=== PATIENT | male | born 1995 | race Caucasian/White ===

== ENCOUNTER 2022-08-22 20:57 | Emergency (ER) | payer OTHER, SELFPAY ==
[2022-08-22 21:02] VITALS: BP 129/76; PULSE 78; RESP 18; TEMP 36.7; O2SAT 100; BMI 25.8
--- NOTE | 2022-08-22 21:12 | ED_ITS ---
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 He notes suggest have occasional diarrhea with bright red hemorrhoidal bleeding related to that but no black stools and no emesis otherwise. He reports no vomiting. No fevers cough or chills. Occasionally has palpitations when he stands up quickly. There is no significant family history for early heart disease he does have other in an uncle who had heart attacks in later life. He has multiple risk factors for gastritis and gastric ulcers including binge drinking, ibuprofen use, excessive anxiety and cortisol levels, excessive caffeine and energy drinks, inadequate sleep and insomnia. Related Data Previous Rx's Medication Instructions Recorded meloxicam 15 mg tablet 15 mg PO DAILY #30 tabs 08/22/22 omeprazole 40 mg capsule,delayed 40 mg PO DAILY #30 caps 08/22/22 release trazodone 50 mg tablet 25 - 100 mg PO BEDTIME PRN 08/22/22 insomnia #60 tabs Allergies Allergy/AdvReac Type Severity Reaction Status Date / Time clarithromycin [From Biaxin] Allergy Verified 08/22/22 21:02 Review of Systems Review of Systems Narrative: Pertinent positive and negative findings as per HPI Patient History Social History Smoking Status: Never smoker Smoking Status: Never smoker alcohol intake frequency: 3 or more drinks per day Alcohol type: hard liquor Substance Use Type: does not use Exam Initial Vital Signs Initial Vital Signs: Vital Signs Temperature 98.0 F 08/22/22 21:02 Pulse Rate 78 08/22/22 21:02 Respiratory Rate 18 08/22/22 21:02 Blood Pressure 129/76 08/22/22 21:02 Pulse Oximetry 100 08/22/22 21:02 Oxygen Delivery Method Room Air 08/22/22 21:02 General: Healthy appearing, in no acute distress. Able to give a complete and coherent history. Well-nourished well-developed HEENT: Moist mucous membranes, normal sclera with reactive pupils, Neck: No JVD, supple Respiratory: Lungs are clear to auscultation, no wheezing no rales no rhonchi. Full and symmetrical air movement Cardiac: Regular rate and rhythm no murmurs no bruits Abdomen: Soft, minor epigastrium/distal sternal tenderness with deep palpation. No rebound or guarding Good bowel tones, no flank pain Skin: Warm and dry, no rashes Neurologic: Grossly neurologically intact with no obvious asymmetries or abnormalities Extremities: No trauma, well perfused Psych: Cooperative, appropriate insight and affect Course Orders Ordered: ED Orders 08/22/22 21:12 EKG-12 Lead Stat 08/22/22 21:31 Complete Blood Count AUTO DIFF Stat Comprehensive Metabolic Panel Stat Lipase Stat Troponin & CK Cardiac Panel Stat 08/22/22 22:05 XR chest 1V Stat Discontinued Medications Pantoprazole Sodium (Pantoprazole 40 Mg Vial) 40 mg IV NOW ONE Stop: 08/22/22 21:13 Last Admin: 08/22/22 21:52 Dose: 40 mg Documented By: YASH Vital Signs Vital signs: Vital Signs - 8 hr 08/22/22 21:02 08/22/22 21:36 08/22/22 21:36 Temperature 98.0 F Pulse Rate 78 84 Respiratory Rate 18 Blood Pressure 129/76 134/79 Pulse Oximetry 100 97 Oxygen Delivery Method Room Air 08/22/22 22:00 08/22/22 22:00 08/22/22 22:30 Temperature Pulse Rate 78 Respiratory Rate 16 Blood Pressure 105/74 118/74 Pulse Oximetry 99 Oxygen Delivery Method Room Air 08/22/22 22:30 08/22/22 23:00 08/22/22 23:00 Temperature Pulse Rate 77 81 Respiratory Rate 18 19 Blood Pressure 127/83 Pulse Oximetry 96 97 Oxygen Delivery Method Room Air 08/22/22 23:30 08/22/22 23:30 Temperature Pulse Rate 76 Respiratory Rate 16 Blood Pressure 125/70 Pulse Oximetry 96 Oxygen Delivery Method Room Air MDM - Chest Pain Lab Data 08/22/22 21:31 08/22/22 21:31 Labs: Lab Results 08/22/22 08/22/22 Range/Units 21:31 21:31 WBC 7.0 (4.5-11.0) X10^3/uL RBC 4.83 (4.5-5.9) X10^6/uL Hgb 15.0 (13.5-17.5) g/dL Hct 42.0 (41-53) % MCV 86.9 (80-100) fL MCH 31.1 (26-34) PG MCHC 35.7 (30-36) % RDW 13.5 (11.6-14.8) % Plt Count 166 (150-400) X10^3/uL Neut % (Auto) 60.9 (50-75) % Lymph % (Auto) 22.7 L (25-40) % [place] % (Auto) 9.2 (3-14) % Eos % (Auto) 6.6 H (2-4) % Baso % (Auto) 0.6 (0-2) % Neut # (Auto) 4300 (3197-3883) /uL Lymph # (Auto) 1600 (9149-1365) /uL [place] # (Auto) 600 (0-900) /uL Eos # (Auto) 500 H (0-450) /uL Baso # (Auto) 0 (0-100) /uL Sodium 138 (137-145) mmol/L Potassium 3.8 (3.4-5.1) mmol/L Chloride 101 (98-107) mmol/L Carbon Dioxide 31 (22-32) mmol/L BUN 19 (9-20) mg/dL Creatinine 1.15 (0.66-1.25) mg/dL Estimated GFR > 60 (>60) mL/min BUN/Creatinine Ratio 16.5 (6-22) Glucose 100 (70-100) mg/dL Calcium 9.1 (8.4-10.2) mg/dL Total Bilirubin 0.8 (0.2-1.3) mg/dL AST 24 (17-59) IU/L ALT 21 (<50) IU/L Alkaline Phosphatase 69 (38-126) U/L Total Creatine Kinase 41 L (55-170) U/L CK-MB (CK-2) TNP CK-MB (CK-2) Rel Index TNP Troponin I < 0.012 (0.01-0.034) ng/mL Total Protein 7.3 (6.3-8.2) g/dL Albumin 4.3 (3.5-5.0) g/dL Globulin 3.0 (1.7-4.1) g/dL Albumin/Globulin Ratio 1.4 (1.0-2.8) Lipase 35 (23-300) U/L MDM Narrative Medical decision making narrative: CC: Chest pain, acute problem uncertain prognosis Complicating co-morbidities: Binge drinking pattern, heavy ibuprofen use for chronic wrist neck and back pain, heavy caffeine use, use of energy drinks, poor sleep, increased stress and anxiety Data collected from: patient, Differential considered: Acute coronary syndrome, pulmonary embolism, gastritis, gastric ulcer, insomnia, pancreatitis Exam documented above, pertinent findings include: Mild reproducible pain with palpation and compression along the distal sternum and epigastrium. Lab Test results independently reviewed as above. Pertinent findings: CBC is unremarkable with no leukocytosis and no anemia Chemistries are reassuring with no change to liver function studies Troponin is unremarkable Lipase is normal Independently reviewed EKG sinus rhythm at a rate of 84, normal intervals, mirza l axis. 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 He notes suggest have occasional diarrhea with bright red hemorrhoidal bleeding related to that but no black stools and no emesis otherwise. We had a long discussion regarding risk factors for gastritis and gastric ulcers. Please see discharge instructions below for details and recommendations. Discharge Plan Departure Patient Disposition: Home Clinical Impression: Atypical chest pain, Gastritis and duodenitis, Sleep disturbance, unspecified Instructions: DI for Gastritis Activity Restrictions/Additional Instructions: Thank you for coming in today 1st off there is no evidence of any acute coronary abnormalities or heart attack. Your chest x-ray was unremarkable. Your EKG and blood work to look for heart abnormalities were all reassuring. The remainder of your blood work does not show any specific liver abnormalities, your kidney function is normal there is no sign of infection nor anemia I suspect that the pain that you are experiencing is related to your stomach and irritation of the stomach lining. This is initially called gastritis and can progress to ulcers. Unfortunately, you have a number of habits that can definitely lead to gastritis and ulcers. Drinking: I am going to suggest you try a 3 month period of sobriety to see if this helps with the chest pain/stomach pain as well as with your sleeping Caffeine use: Please limit your caffeine use to 1 regular or single shot of espresso cup of coffee in the morning only. Energy drinks: Stop these altogether. If you are needing an energy drink to get through the afternoon you need to be sleeping better at night. Sleep: I suspect that the caffeine, energy drinks and when you are drinking alcohol use are all interrupting your sleep. Hopefully with the changes as listed above your sleep will improve. I am going to give you a prescription for a sleeping pill it is not addictive. Does called trazodone. Going to have you start with 50 mg. If it feels like you are still too sleepy in the morning cut the pill in half. If you notice no effects with the 50 mg you can take 2. You do need follow-up with a primary care doctor. [place], you can call [facility] at [phone] and see if they can help you get on a waiting list for primary care doctor in [place]. I also believe that you would benefit from Gastroenterology consultation and probably upper endoscopy. To that end I am going to suggest that you call [facility] the phone number is [phone]. Please let them know that you were seen in the emergency department, concerned about ulcers and requesting consultation and possible upper endoscopy. In the meantime, I am also going to give you a prescription for omeprazole, stomach acid medication. It is 40 mg daily. See if this is helpful in reducing overall stomach acid and helping your stomach heal more effectively. STOP All of the ibuprofen you are currently taking. I have given you a prescription for 15 mg of meloxicam. This too can irritate your stomach but not quite as much as ibuprofen. Another thing to follow-up with your outpatient doctor is H pylori testing to see if this is contributing to overall symptoms. If you find that you are getting worse or develop any new symptoms, please feel free to return to the emergency department for further evaluation. Prescriptions were all electronically sent to [facility] in [place]. Prescriptions: New trazodone 50 mg tablet 25 - 100 mg PO BEDTIME PRN (Reason: insomnia) Qty: 60 0RF omeprazole 40 mg capsule,delayed release(DR/EC) 40 mg PO DAILY Qty: 30 1RF meloxicam 15 mg tablet 15 mg PO DAILY Qty: 30 1RF Referrals: ProviderRick [Primary Care Provider] - Stand Alone Forms: Patient Portal/API
[2022-08-22 21:36] VITALS: BP 134/79; PULSE 84; O2SAT 97
[2022-08-22 21:51] LABS: Add Manual Diff / Slide Review NO; Basophils Absolute Auto 0 /uL (0-100); Basophils Percent Auto 0.6 % (0-2); Eosinophils Absolute Auto 500 /uL (0-450); Eosinophils Percent Auto 6.6 % (2-4); Lymphocytes Absolute Auto 1600 /uL (1100-4500); Lymphocytes Percent Auto 22.7 % (25-40); Mean Corpuscular HGB Conc 35.7 % (30-36); Mean Corpuscular Hemoglobin 31.1 PG (26-34); Mean Corpuscular Volume 86.9 fL (80-100); Monocytes Absolute Auto 600 /uL (0-900); Monocytes Percent Auto 9.2 % (3-14); Neutrophils Absolute Auto 4300 /uL (1500-7000); Neutrophils Percent Auto 60.9 % (50-75); Platelet Count 166 X10^3/uL (150-400); Red Blood Cell Count 4.83 X10^6/uL (4.5-5.9); Red Cell Distribution Width 13.5 % (11.6-14.8)
[2022-08-22] MEDS: PANTOPRAZOLE 40 MG VIAL IV (21:52)
[2022-08-22 21:57] LABS: Alanine Aminotransferase 21 IU/L (<50); Albumin 4.3 g/dL (3.5-5.0); Albumin Globulin Ratio 1.4 (1.0-2.8); Alkaline Phosphatase 69 U/L (38-126); Aspartate Aminotransferase 24 IU/L (17-59); BUN Creatinine Ratio 16.5 (6-22); Bilirubin Total 0.8 mg/dL (0.2-1.3); Blood Urea Nitrogen 19 mg/dL (9-20); Calcium 9.1 mg/dL (8.4-10.2); Carbon Dioxide 31 mmol/L (22-32); Chloride 101 mmol/L (98-107); Creatine Kinase 41 U/L (55-170); Estimated Glomerular Filt Rate > 60 mL/min (>60); Glucose 100 mg/dL (70-100); HEMOLYSIS 24 (0-50); Lipase 35 U/L (23-300); Potassium 3.8 mmol/L (3.4-5.1); Sodium 138 mmol/L (137-145); Total Protein 7.3 g/dL (6.3-8.2)
[2022-08-22 22:00] VITALS: BP 105/74; PULSE 78; RESP 16; O2SAT 99
--- NOTE | 2022-08-22 22:05 | DI.RAD.S_ITS ---
PROCEDURE: XR CHEST 1V INDICATIONS: chest pain TECHNIQUE: One view of the chest was acquired. COMPARISON: None. FINDINGS: Surgical changes and devices: None. Lungs and pleura: Lungs are clear. No pleural effusions or pneumothorax. Mediastinum: Mediastinal contours appear normal. Heart size is normal. Bones and chest wall: No suspicious bony lesions. Overlying soft tissues appear unremarkable. IMPRESSION: No acute cardiopulmonary process. Dictated by: Hebert Mckeon M.D. on 08/22/2022 at 22:12 Approved by: Hebert Mckeon M.D. on 08/22/2022 at 22:12
[2022-08-22 22:07] LABS: Troponin I < 0.012 ng/mL (0.01-0.034)
[2022-08-22 22:30] VITALS: BP 118/74; PULSE 77; RESP 18; O2SAT 96
[2022-08-22 23:00] VITALS: BP 127/83; PULSE 81; RESP 19; O2SAT 97
[2022-08-22 23:30] VITALS: BP 125/70; PULSE 76; RESP 16; O2SAT 96
== END 2022-08-23 00:04 | disposition home or self-care (01) ==
PROVIDERS: Emergency Provider Emergency Medicine
DX: R07.89 Other chest pain (principal); K29.90 Gastroduodenitis, unspecified, without bleeding; G47.9 Sleep disorder, unspecified
CPT/HCPCS: 36415; 71045; 80053; 82550; 83690; 84484; 85025; 93005; 93010; 96374; 99284; C9113

== ENCOUNTER 2022-10-12 10:09 | Emergency (ER) | payer OTHER, SELFPAY ==
--- NOTE | 2022-10-12 10:14 | DI.RAD.S_ITS ---
PROCEDURE: XR SHOULDER RT MIN 2V INDICATIONS: fall with lateral shoulder pain TECHNIQUE: Three views of the shoulder were acquired. COMPARISON: None. FINDINGS: Bones: No fractures or dislocations. No suspicious bony lesions. Visualized ribs appear intact. Soft tissues: No suspicious soft tissue calcifications. IMPRESSION: Normal right shoulder. Dictated by: Barbara Bui M.D. on 10/12/2022 at 10:45 Approved by: Barbara Bui M.D. on 10/12/2022 at 10:45
[2022-10-12 10:21] VITALS: BP 140/86; PULSE 75; RESP 17; TEMP 36.2; O2SAT 99; BMI 26.5
--- NOTE | 2022-10-12 10:41 | ED.UPPEXIN ---
HPI - Extremity Injury (Upper) General Chief Complaint: Extremity Injury, Upper Stated Complaint: R shoulder pain after fall, pop Time Seen by Provider: 10/12/22 10:14 Source: patient Mode of arrival: Ambulatory History of Present Illness HPI narrative: 27-year-old male nonsmoker with noncontributory medical history presents with a chief complaint of pain in his right shoulder after a ground level fall earlier this morning. He states he landed on an outstretched arm and has pain in his lateral shoulder. He denies any head neck or back pain. He denies any numbness or tingling. He has no pain in elbow or wrist. His pain is worse when he moves and improves with rest Related Data Home Medications Medication Instructions Recorded Confirmed fluoxetine 20 mg capsule mg PO 10/12/22 Allergies Allergy/AdvReac Type Severity Reaction Status Date / Time clarithromycin [From Biaxin] Allergy Hives Verified 10/12/22 10:23 Review of Systems Review of Systems Narrative: GENERAL: Denies chills, fatigue, malaise, fever, sweats. HEENT: Denies sinus pain, ear pain, sore throat, difficulty swallowing, dizziness. RESPIRATORY: Denies dyspnea, cough, wheezing, hemoptysis, sputum. CARDIOVASCULAR: Denies chest pain, palpitations, orthopnea, edema, GASTROINTESTINAL: Denies nausea, vomiting, abdominal pain, diarrhea, constipation, melena. : Denies dysuria, frequency, incontinence, hematuria, urinary retention. MUSCULOSKELETAL: see HPI SKIN: Denies rash, skin lesions, or other NEUROLOGIC: Denies weakness, headache, numbness, change in speech, confusion, seizures, incoordination. PSYCHIATRIC: No concerning psychosocial issues. 12 point review of systems is negative except for those stated above Patient History Social History Smoking Status: Never smoker Smoking Status: Never smoker alcohol intake frequency: 3 or more drinks per day Alcohol type: hard liquor Substance Use Type: does not use Exam Narrative Exam Narrative: GEN: AOx3 and in mild distress EYES: Pupils are equal, round, and reactive to light and accommodation. Extraoccular muscles are intact bilaterally. There is no subconjunctival hemorrhage or exudate. CHEST: Lungs are clear to auscultation bilaterally and free of wheezes, rales, or rhonchi. Heart rate is regular rhythm, there are no murmurs, clicks, rubs, or gallops. There is no chest wall tenderness. ABD: Abdomen is soft and nontender. There is no guarding or rebound. Bowel sounds are normal in all 4 quadrants. There is no mass or organomegaly. EXT: full, but painful ROM, tender on palpation of lateral shoulder. No obvious Deformity, closed, isolated and neurovascularly intact SKIN: Warm, pink, and dry. No erythema or rash Initial Vital Signs Initial Vital Signs: Vital Signs Temperature 97.1 F L 10/12/22 10:21 Pulse Rate 75 10/12/22 10:21 Respiratory Rate 17 10/12/22 10:21 Blood Pressure 140/86 10/12/22 10:21 Pulse Oximetry 99 10/12/22 10:21 Oxygen Delivery Method Room Air 10/12/22 10:21 Procedures Orthopedic Splinting/Casting Injury #1: Side: right Upper Extremity Injury Location: shoulder Upper Extremity Immobilizer: sling/shoulder immobilizer Post splinting neuro exam: intact Post splinting vascular exam: intact Placed by: Nursing Course Orders Ordered: ED Orders 10/12/22 10:14 XR shoulder RT min 2V Stat Vital Signs Vital signs: Vital Signs - 8 hr 10/12/22 10:21 Temperature 97.1 F L Pulse Rate 75 Respiratory Rate 17 Blood Pressure 140/86 Pulse Oximetry 99 Oxygen Delivery Method Room Air MDM - Extremity Injury (Upper) MDM Narrative Medical decision making narrative: [27] year old patient presents with Right shoulder pain after fall Multiple etiologies for patient's symptoms considered including, but not limited to: [ contusion versus sprain versus dislocation versus other] Primary Historian: patient Imaging reviewed: no evidence of fracture or dislocation patient has a reassuring history and physical exam most consistent with sprain or strain, multiple diagnoses considered but thought less likely given reassuring x-rays. Patient is placed in a splint, encouraged to take anti-inflammatories and follow up with his primary doctor Findings and discharge diagnosis discussed with patient/family followed by verbalization of understanding Return precautions discussed with patient/family whom verbalize understanding of diagnosis and plan Discharge Plan Departure Patient Disposition: Home Clinical Impression: Sprain of right shoulder Instructions: DI for Shoulder Sprain Activity Restrictions/Additional Instructions: *You have been diagnosed with [ right shoulder sprain. As we discussed there is no evidence of fracture or dislocation on your imaging and your pain is most likely secondary to sprain or strain of her shoulder and should improve on its own over the course of the week or so.] *What to do: *Please continue to take your regular medications as directed. [ ] New medication prescriptions sent to your pharmacy: [ ] [ ] New medication written as a paper prescription [ ] No new medications given *Please follow up with your primary care provider in 2-3 days, call for an appointment. Let them know you were seen in the Emergency Department and that we ask that you be seen in follow up. We will electronically transmit a record of today's note if your PCP is in our system *If you do not have a primary care provider please contact the [facility] Resource line at [phone]. They will ask some questions about your medical history and help get you set up with a doctor in the community. *Return to Emergency Department if you should have any new, worsening or concerning symptoms, such as [fever greater than 101 F, shaking chills, worsening pain, persistent vomiting or other bothersome symptoms] Prescriptions: No Action fluoxetine 20 mg capsule PO Referrals: ProviderRick [Primary Care Provider] - Stand Alone Forms: Patient Portal/API
== END 2022-10-12 10:51 | disposition home or self-care (01) ==
PROVIDERS: Emergency Provider Emergency Medicine
DX: S43.401A Unspecified sprain of right shoulder joint, initial encounter (principal); W18.30XA Fall on same level, unspecified, initial encounter
CPT/HCPCS: 73030; 99283